=== PATIENT | male | born 1955 | race Caucasian/White ===

== ENCOUNTER 2016-08-19 16:02 | Emergency (ER) | payer OTHER ==
[2016-08-19 16:05] VITALS: BP 131/82
[2016-08-19] MEDS ORDERED: IV NORMAL SALINE 1,000ML 1,000 ML IV SCH (16:11)
--- NOTE | 2016-08-19 16:11 | ED.ADGEN ---
Adult General Chief Complaint Chief Complaint Abdominal pain HPI HPI Patient is a 61 year old male who presents with abdominal pain. He states he felt fine this morning and he felt fine when he woke up however after he ate chicken noodle soup at lunch he started developing lower quadrant abdominal pain. He states that sharp in nature and crampy sensation it does come and go. He did have one episode of nonbloody loose stool they started feeling lightheaded dizzy and got sweaty. He denies any chest pain or shortness of breath, testicular pain. He states he's had a history of epididymitis and this pain does not feel anything similar to his previous testicular pain. He said complain still of intermittent crampy lower/right abdominal pain. Denies any fevers or chills. He is denies any history of having discomfort like this before. He denies any history of surgeries on his abdomen. He does state he is allergic to iodine Review of Systems Review of Systems Constitutional: Denies fever or chills [] Eyes: Denies change in visual acuity, redness, or eye pain [] HENT: Denies nasal congestion or sore throat [] Respiratory: Denies cough or shortness of breath [] Cardiovascular: No additional information not addressed in HPI [] GI: Positive for abdominal pain, nausea, diarrhea, denies any blood in his stool or vomit : Denies dysuria or hematuria [] Musculoskeletal: Denies back pain or joint pain [] Integument: Denies rash or skin lesions [] Neurologic: Denies headache, focal weakness or sensory changes [] Endocrine: Denies polyuria or polydipsia [] Current Medications Current Medications Current Medications Medications (Trade) Dose Ordered Sig/Roland Start Time Stop Time Status Last Admin Dose Admin Barium Sulfate (Readi-Cat 2) 450 ml 1X ONCE 08/19/16 17:15 08/19/16 17:15 DC Iohexol (Omnipaque 240 Mg/ml) 50 ml STK-MED ONCE 08/19/16 16:26 08/19/16 16:27 DC Morphine Sulfate 2 mg 2 mg PRN Q15MIN PRN 08/19/16 16:15 08/20/16 16:14 08/19/16 16:26 2 MG Ondansetron HCl (Zofran) 4 mg 1X ONCE 08/19/16 16:45 08/19/16 16:46 DC 08/19/16 16:25 4 MG Sodium Chloride (Iv Sodium Chloride 0.9% 1,000ml) 1,000 ml @ 1,000 mls/hr Q1H 08/19/16 16:11 08/19/16 17:10 DC 08/19/16 16:25 1,000 MLS/HR Allergies Allergies Allergies Coded Allergies Type Severity Reaction Last Updated Verified Iodine and Iodide Containing Produc Allergy Intermediate sob 08/19/16 Yes Physical Exam Physical Exam Constitutional: Well developed, well nourished, no acute distress, non-toxic appearance. [] HENT: Normocephalic, atraumatic, bilateral external ears normal, oropharynx moist, no oral exudates, nose normal. [] Eyes: PERRLA, EOMI, conjunctiva normal, no discharge. [] Neck: Normal range of motion, no tenderness, supple, no stridor. [] Cardiovascular:Heart rate regular rhythm, no murmur [] Lungs & Thorax: Bilateral breath sounds clear to auscultation [] Abdomen: Bowel sounds hyperactive, soft, mild tender palpation in the right lower and suprapubic quadrants no rebound or guarding no masses, no pulsatile masses. [] Skin: Warm, dry, no erythema, no rash. [] Back: No tenderness, no CVA tenderness. [] Extremities: No tenderness, no cyanosis, no clubbing, ROM intact, no edema. [] Neurologic: Alert and oriented X 3, normal motor function, normal sensory function, no focal deficits noted. [] Psychologic: Affect normal, judgement normal, mood normal. [] Current Patient Data Vital Signs Vital Signs Date Time Temp Pulse Resp B/P Pulse Ox O2 Delivery O2 Flow Rate FiO2 08/19/16 16:26 20 08/19/16 16:05 98.8 84 97 Room Air Lab Results Laboratory Tests Test 08/19/16 16:10 White Blood Count 9.4x10^3/uL (4.0-11.0) Red Blood Count 5.30x10^6/uL (4.30-5.70) Hemoglobin 15.6g/dL (13.0-17.5) Hematocrit 45.6% (39.0-53.0) Mean Corpuscular Volume 86fL (79-100) Mean Corpuscular Hemoglobin 30pg (25-35) Mean Corpuscular Hemoglobin Concent 34g/dL (31-37) Red Cell Distribution Width 13.1% (11.5-14.5) Platelet Count 199x10^3/uL (140-400) Neutrophils (%) (Auto) 86% (31-73) H Lymphocytes (%) (Auto) 7% (24-48) L Monocytes (%) (Auto) 5% (0-9) Eosinophils (%) (Auto) 2% (0-3) Basophils (%) (Auto) 0% (0-3) Neutrophils # (Auto) 8.1x10^3uL (1.8-7.7) H Lymphocytes # (Auto) 0.7x10^3/uL (1.0-4.8) L Monocytes # (Auto) 0.5x10^3/uL (0.0-1.1) Eosinophils # (Auto) 0.2x10^3/uL (0.0-0.7) Basophils # (Auto) 0.0x10^3/uL (0.0-0.2) Prothrombin Time 10.4SEC (9.4-11.4) Prothrombin Time INR 1.0 (0.9-1.1) PTT 22SEC (23-33) L Sodium Level 136mmol/L (136-145) Potassium Level 4.2mmol/L (3.5-5.1) Chloride Level 102mmol/L (98-107) Carbon Dioxide Level 26mmol/L (21-32) Anion Gap 8 (6-14) Blood Urea Nitrogen 15mg/dL (8-26) Creatinine 1.1mg/dL (0.7-1.3) Estimated GFR (Cockcroft-Gault) 68.1 Glucose Level 108mg/dL (70-99) H Calcium Level 8.7mg/dL (8.5-10.1) Total Bilirubin 0.8mg/dL (0.2-1.0) Direct Bilirubin 0.2mg/dL (0.0-0.2) Aspartate Amino Transferase (AST) 32U/L (15-37) Alanine Aminotransferase (ALT) 34U/L (16-63) Alkaline Phosphatase 71U/L (46-116) Creatine Kinase 235U/L (39-308) Creatine Kinase MB (Mass) 2.1ng/mL (0.0-3.6) Creatine Kinase MB Relative Index 0.9% (0-4) Troponin I Quantitative < 0.017ng/mL (0-0.055) Total Protein 7.9g/dL (6.4-8.2) Albumin 4.1g/dL (3.4-5.0) Lipase 101U/L (73-393) EKG EKG EKG shows normal sinus rhythm with rate of [address] elevations or T -wave inversions, normal axis, QTC 422 ms, as interpreted by me. Radiology/Procedures Radiology/Procedures [] Course & Med Decision Making Course & Med Decision Making Pertinent Labs and Imaging studies reviewed. (See chart for details) Labs do not show any acute abnormalities. Urine is still pending at this time. CT abdomen and pelvis with by mouth contrast is pending. The patient is being checked out to Dr. Betancourt for final disposition. Final Impression Final Impression Abdominal pain Problems: Dragon Disclaimer Dragon Disclaimer This electronic medical record was generated, in whole or in part, using a voice recognition dictation system. NANCY NARAYAN MD August 19, 2016 16:10
[2016-08-19] MEDS ORDERED: MORPHINE SULFATE 2 MG/ML DISP.SYRIN. IV/SQ PRN (16:15)
--- NOTE | 2016-08-19 16:19 | EKG ---
[address] [address] Test Date: 2016-08-19 Test Time: 16:18:26 Pat Name: ADORE ELI Department: Room: Gender: M [employer] Caulker: KASEY : 1955 Requested By: NANCY NARAYAN Order Number: [id number] Reading MD: Sixto Noble Measurements Intervals [place] Rate: 87 P: 42 MD: 148 QRS: 21 QRSD: 84 T: 48 QT: 346 QTc: 422 Interpretive Statements SINUS RHYTHM Electronically Signed On 08-21-2016 13:16:45 CDT by Sixto Noble
[2016-08-19] MEDS ORDERED: IOHEXOL 240 MG/ML 50ML VIAL. ONE (16:26)
[2016-08-19 16:33] LABS: BASO % 0 % (0-3); EOS # 0.2 x10^3/uL (0.0-0.7); EOS % 2 % (0-3); HEMATOCRIT 45.6 % (39.0-53.0); HEMOGLOBIN 15.6 g/dL (13.0-17.5); LYMPH # 0.7 x10^3/uL (1.0-4.8); LYMPH % 7 % (24-48); MEAN CORPUSCULAR HEMOGLOBIN 30 pg (25-35); MEAN CORPUSCULAR HGB CONC 34 g/dL (31-37); MEAN CORPUSCULAR VOLUME 86 fL (79-100); MONO # 0.5 x10^3/uL (0.0-1.1); MONO % 5 % (0-9); NEUT # 8.1 x10^3uL (1.8-7.7); NEUT % 86 % (31-73); PLATELET COUNT 199 x10^3/uL (140-400); RED CELL DISTRIBUTION WIDTH 13.1 % (11.5-14.5); WHITE BLOOD COUNT 9.4 x10^3/uL (4.0-11.0)
[2016-08-19] MEDS ORDERED: ONDANSETRON PF 4 MG/2 ML VIAL. IV ONE (16:45)
[2016-08-19 16:51] LABS: ALBUMIN 4.1 g/dL (3.4-5.0); CALCIUM 8.7 mg/dL (8.5-10.1); CREATININE 1.1 mg/dL (0.7-1.3); DIRECT BILIRUBIN 0.2 mg/dL (0.0-0.2); GFR 68.1; POTASSIUM 4.2 mmol/L (3.5-5.1); TOTAL BILIRUBIN 0.8 mg/dL (0.2-1.0); TOTAL PROTEIN 7.9 g/dL (6.4-8.2)
[2016-08-19] MEDS ORDERED: BARIUM SULFATE 2.1% 450 ML SUSP PO ONE ×2 (17:15)
--- NOTE | 2016-08-19 19:10 | RAD ---
PROCEDURE CT abdomen and pelvis with oral contrast only HISTORY Bloating, abdominal pain for 24 hours TECHNIQUE After administration of oral contrast, CT imaging was performed of the abdomen pelvis, no intravenous contrast given due to stated allergic reaction previously. Exposure: One or more of the following individualized dose reduction techniques were utilized for this exam: 1. Automated exposure control. 2. Adjustment of the mA and/or kV according to patient size. 3. Use of iterative reconstruction technique. COMPARISON None FINDINGS There is no significant abnormality of the limited visualized lung bases. Accurate evaluation of the abdominal visceral organs is limited without intravenous contrast. There is no obvious focal abnormality of the liver, pancreas, spleen. There is no adrenal nodularity. No urolithiasis or hydronephrosis is identified. Gallbladder is present without obvious intraluminal abnormality by CT. Bowel is not considered significantly dilated. There is no free air or free fluid. Normal appendix is visualized. There is distention of urinary bladder. There is mild colonic diverticulosis most notable of the descending colon. There is advanced degenerative disc disease L5-S1 and to a lesser degree at L4-5. There is moderate to severe right and moderate left L5-S1 neural foramina compromise in part from disc osteophyte complex. IMPRESSION 1. There is distention of urinary bladder. 2. No significant inflammatory type change is identified. There is mild colonic diverticulosis. There is no evidence of acute appendicitis. Electronically signed by: Flip Gamez MD (August 19, 2016 19:09:29)
--- NOTE | 2016-08-19 19:15 | PHYS DOC ---
General Chief Complaint: ABDOMINAL PAIN Stated Complaint: ABDOMINAL PAIN Time Seen by MD: 18:52 Problems: History of Present Illness Initial Comments Pt signed out to me at 1800 shift change. Pt with abdominal pain, CT/UA pending. See Dr Narayan chart for full history. Allergies: Coded Allergies: Iodine and Iodide Containing Produc (Verified Allergy, Intermediate, sob, 08/19/16) Orders, Labs, Meds PATIENT: ADORE ELI ACCOUNT: [id number] : 1955 LOCATION: ER AGE: 61 SEX: M EXAM STATUS: REG ER ORD. PHYSICIAN: NANCY NARAYAN MD REASON: abd pain PROCEDURE: CT ABD PEL W/ORAL CONTRST ONLY PROCEDURE CT abdomen and pelvis with oral contrast only HISTORY Bloating, abdominal pain for 24 hours TECHNIQUE After administration of oral contrast, CT imaging was performed of the abdomen pelvis, no intravenous contrast given due to stated allergic reaction previously. Exposure: One or more of the following individualized dose reduction techniques were utilized for this exam: 1. Automated exposure control. 2. Adjustment of the mA and/or kV according to patient size. 3. Use of iterative reconstruction technique. COMPARISON None FINDINGS There is no significant abnormality of the limited visualized lung bases. Accurate evaluation of the abdominal visceral organs is limited without intravenous contrast. There is no obvious focal abnormality of the liver, pancreas, spleen. There is no adrenal nodularity. No urolithiasis or hydronephrosis is identified. Gallbladder is present without obvious intraluminal abnormality by CT. Bowel is not considered significantly dilated. There is no free air or free fluid. Normal appendix is visualized. There is distention of urinary bladder. There is mild colonic diverticulosis most notable of the descending colon. There is advanced degenerative disc disease L5-S1 and to a lesser degree at L4-5. There is moderate to severe right and moderate left L5-S1 neural foramina compromise in part from disc osteophyte complex. IMPRESSION 1. There is distention of urinary bladder. 2. No significant inflammatory type change is identified. There is mild colonic diverticulosis. There is no evidence of acute appendicitis. Electronically signed by: Олег Crespo MD (August 19, 2016 19:09:29) DICTATED AND SIGNED BY: SAVANNA CRESPO MD DATE: 08/19/161908 CC: NANCY NARAYAN MD; SANTOSH ROBLES; ОЛЕГ BRYAN DO ~ UA unremarkable. Pt feeling better at time of disposition, he expressed agreement/understanding with treatment plan. Departure Time of Disposition: 20:34 Disposition: 01 HOME, SELF-CARE Diagnosis: gastroenteritis, diverticulitis Condition: GOOD Patient Instructions: Diverticulosis, Viral Gastroenteritis, [id number] Additional Instructions: Clear liquids today, advance diet slowly as tolerated tomorrow. Aggressive hydration with gatorade, water. Review the information regarding diverticulosis, pay attention to dietary precautions. Rx: dicyclomine, zofran odt, norco 7.5mg #20 Take meds with food. Work excuse thru 08/21. Follow up with your doctor in 5-7 days if no improvement. Return to ED with new or changing symptoms. ОЛЕГ BRYAN DO August 19, 2016 19:15
[2016-08-19 19:44] LABS: AMPHETAMINE/METHAMPHETAMINE NEG (NEG); BARBITURATES NEG (NEG); BENZODIAZEPINES NEG (NEG); CANNABINOIDS NEG (NEG); COCAINE NEG (NEG); METHADONE NEG (NEG); OPIATES POS (NEG); PHENCYCLIDINE NEG (NEG)
[2016-08-19 20:06] LABS: BILIRUBIN,URINE NEG (NEG); CLARITY,URINE CLEAR; COLOR,URINE YELLOW; GLUCOSE,URINE NEG (NEG); NITRITE,URINE NEG (NEG); UROBILINOGEN,URINE 0.2 mg/dL (0.2 mg/dL)
[2016-08-19 20:07] LABS: BACTERIA,URINE 0 /HPF (0-FEW); SQUAMOUS EPITHELIAL CELL,UR MOD /LPF
[2016-08-19] MEDS ORDERED: HYDR-965 PO (20:28)
[2016-08-19] MEDS ORDERED: ONDA4TAB10 PO (20:28)
[2016-08-19] MEDS ORDERED: DICY20TA3 PO (20:28)
== END 2016-08-19 21:02 | disposition home or self-care (01) ==
LOC: ER 16:02
DX: K52.9 Noninfective gastroenteritis and colitis, unspecified (principal); K57.92 Diverticulitis of intestine, part unspecified, without perforation or abscess without bleeding; Z91.041 Radiographic dye allergy status
CPT/HCPCS: 36415; 74176; 80048; 80076; 80305; 81001; 82553; 83690; 84484; 85027; 85610; 85730; 93005; 96361; 96374; 96375; 99285; J2270; J2405; G0481; J7030